=== PATIENT | male | born 1960 | race Caucasian/White ===

== ENCOUNTER → 2020-08-18 | Outpatient (CLI) | payer MEDICARE, OTHER ==
[~2020-08-18] MED LIST: AMLODIPINE BESYL5 MG PO; CITALOPRAM HBR40 MG PO; GABAPENTIN800 MG PO; HYDROCODON-ACE1 EAC4 PO; IBU600 MG PO; NORCO 5-325 TA1 EACH PO; OMEPRAZOLE20 MG PO; PERCOCET 5-3251 EACH PO; PROSCAR 5 MG TAB5 MG PO; SIMVASTATIN10 MG PO
== END ==
LOC: EXRD 09:00
DX: I71.4 Abdominal aortic aneurysm, without rupture (principal)
CPT/HCPCS: 93979

== ENCOUNTER → 2020-09-04 | Outpatient (CLI) | payer MEDICARE, OTHER ==
[2020-09-04 11:57] LABS: HEMOGLOBIN 12.7 gm/dl (14.0-17.5); RED BLOOD COUNT 3.66 M/UL (4.20-5.50); WHITE BLOOD COUNT 11.8 K/UL (4.5-11.0)
[2020-09-04 12:34] LABS: BUN/CREATININE RATIO 10 (0-10)
== END ==
LOC: OPSV2 11:03
PROVIDERS: Orthopaedic Surgery
DX: Z01.818 Encounter for other preprocedural examination (principal); S42.302K Unspecified fracture of shaft of humerus, left arm, subsequent encounter for fracture with nonunion
CPT/HCPCS: 36415; 71046; 80048; 85027; 93005

== ENCOUNTER → 2020-09-08 | Outpatient (CLI) | payer MEDICARE, OTHER | LOC: LAB 11:17 | DX: Z01.812 Encounter for preprocedural laboratory examination (principal) | CPT/HCPCS: 36415; 86850; 86900; 86901 ==

== ENCOUNTER 2020-09-09 09:29 | Day surgery (SDC) | payer MEDICARE, OTHER ==
[~2020-09-09] VITALS: Ht 182.9 cm; Wt 102.1 kg
[2020-09-09 22:03] LABS: RED BLOOD COUNT 3.72 M/UL (4.20-5.50); WHITE BLOOD COUNT 20.3 K/UL (4.5-11.0)
[2020-09-09 22:22] LABS: BUN/CREATININE RATIO 17 (0-10)
[2020-09-10 05:11] LABS: WHITE BLOOD COUNT 15.4 K/UL (4.5-11.0)
[2020-09-10 05:14] LABS: HEMOGLOBIN 10.8 gm/dl (14.0-17.5); RED BLOOD COUNT 3.16 M/UL (4.20-5.50)
[2020-09-10 05:47] LABS: BUN/CREATININE RATIO 17 (0-10)
== END 2020-09-10 13:42 | disposition home or self-care (01) ==
LOC: OR 09:29 → M/S 09:29 → OR 11:30 → M/S 09-10 00:30 → OR 09-10 13:42
PROVIDERS: Orthopaedic Surgery
PROC: 0PUG07Z Supplement Left Humeral Shaft with Autologous Tissue Substitute, Open Approach (ICD-10-PCS; 2020-09-09)
PROC: 0PPD04Z Removal of Internal Fixation Device from Left Humeral Head, Open Approach (ICD-10-PCS; 2020-09-09)
PROC: 3E0T3BZ Introduction of Anesthetic Agent into Peripheral Nerves and Plexi, Percutaneous Approach (ICD-10-PCS; 2020-09-09)
PROC: 0PSG04Z Reposition Left Humeral Shaft with Internal Fixation Device, Open Approach (ICD-10-PCS; principal; 2020-09-09 11:45)
DX: S42.302K Unspecified fracture of shaft of humerus, left arm, subsequent encounter for fracture with nonunion (principal); I10 Essential (primary) hypertension; E55.9 Vitamin D deficiency, unspecified; E78.5 Hyperlipidemia, unspecified; J45.909 Unspecified asthma, uncomplicated; F17.210 Nicotine dependence, cigarettes, uncomplicated; Z20.822 Contact with and (suspected) exposure to COVID-19; Z79.899 Other long term (current) drug therapy; Z88.8 Allergy status to other drugs, medicaments and biological substances; W19.XXXD Unspecified fall, subsequent encounter
CPT/HCPCS: 36415; 73060; 76000; 80048; 80053; 85025; 85027; 97161; 97166; 97535; C1713; C1762; J0690; J1100; J1170; J2250; J2405; J2710; J2795; J3010; J3370; J7120

== ENCOUNTER → 2020-10-03 | Outpatient (CLI) | payer MEDICARE, OTHER | LOC: MRI 09:30 | DX: F17.210 Nicotine dependence, cigarettes, uncomplicated (principal); M89.9 Disorder of bone, unspecified | CPT/HCPCS: 82565 ==

== ENCOUNTER → 2020-11-19 | Outpatient (CLI) | payer MEDICARE, OTHER | LOC: MRI 13:42 | DX: F17.210 Nicotine dependence, cigarettes, uncomplicated (principal); M89.9 Disorder of bone, unspecified; S22.42XD Multiple fractures of ribs, left side, subsequent encounter for fracture with routine healing; R91.8 Other nonspecific abnormal finding of lung field | CPT/HCPCS: 36415; 82565; A9577 ==

== ENCOUNTER → 2021-08-24 | Outpatient (CLI) | payer MEDICARE, OTHER | LOC: KOH-I 08-10 16:00 | DX: F17.210 Nicotine dependence, cigarettes, uncomplicated (principal); R91.8 Other nonspecific abnormal finding of lung field | CPT/HCPCS: 71271 ==

== ENCOUNTER → 2021-09-01 | Outpatient (CLI) | payer MEDICARE, OTHER | LOC: KOH-I 09:00 | DX: I71.4 Abdominal aortic aneurysm, without rupture (principal) | CPT/HCPCS: 93979 ==

== ENCOUNTER 2021-10-09 19:54 | Emergency (ER) | payer MEDICARE, OTHER ==
[2021-10-09 20:10] LABS: RED BLOOD COUNT 3.84 M/UL (4.20-5.50)
[2021-10-09 20:29] LABS: BUN/CREATININE RATIO 13 (0-10)
[2021-10-09] MEDS ORDERED: HYDROCODON-ACE1 EAC4 PO (21:37)
== END 2021-10-09 22:20 | disposition home or self-care (01) ==
LOC: ER1 19:54
PROVIDERS: Student in an Organized Health Care Education/Training Program
DX: S42.021A Displaced fracture of shaft of right clavicle, initial encounter for closed fracture (principal); I10 Essential (primary) hypertension; Z88.8 Allergy status to other drugs, medicaments and biological substances; Z51.81 Encounter for therapeutic drug level monitoring; X50.9XXA Other and unspecified overexertion or strenuous movements or postures, initial encounter
CPT/HCPCS: 36600; 70450; 70486; 71045; 71260; 72125; 72170; 73030; 73590; 73610; 80053; 82803; 85025; 85610; 85730; 86850; 86900; 86901; 86920; 90471; 90715; 99284; G0480; Q9967